=== PATIENT | female | born 1985 | race Two or more races ===

== ENCOUNTER 2019-08-16 09:16 | Emergency (ER) | payer MEDICAID ==
[~2019-08-16] VITALS: Ht 157.5 cm; Wt 62.1 kg
[2019-08-16 09:30] VITALS: BP 126/91
[2019-08-16] MEDS ORDERED: IBUPROFEN 600 MG TABLET PO ONE ×2 (10:00→10:09)
--- NOTE | 2019-08-16 10:27 | NUR ---
Patient discharged to home in stable condition. Written and verbal after care instructions given. Patient verbalizes understanding of instruction.
== END 2019-08-16 10:28 | disposition home or self-care (01) ==
LOC: EDSEX 09:16 → ER 09:16
DX: S06.0X0A Concussion without loss of consciousness, initial encounter (principal); W18.39XA Other fall on same level, initial encounter; Y93.89 Activity, other specified; Y92.89 Other specified places as the place of occurrence of the external cause; Y99.8 Other external cause status